=== PATIENT | male | born 1950 | race Caucasian/White ===

== ENCOUNTER → 2016-12-28 | Outpatient (CLI) | payer MEDICARE ==
[~2016-12-28] MED LIST: AMIT50TA PO; ATOR40TA78 PO; CARB200T3 PO; ESOM40CA PO; GABA600T2 PO; LEVO25TA4 PO; MORPHINE PO; OXYC-302 PO; OXYC15TA PO; OXYC15TA60 PO; TAMS-11 PO
== END | disposition home or self-care (01) ==
LOC: CFH 09:18
PROVIDERS: ATTEND Neurological Surgery
DX: M48.06 Spinal stenosis, lumbar region (principal); M51.36 Other intervertebral disc degeneration, lumbar region
CPT/HCPCS: 72100

== ENCOUNTER → 2017-03-24 | Outpatient (CLI) | payer MEDICARE | END | disposition home or self-care (01) | LOC: CFH 09:46 | PROVIDERS: ATTEND Neurological Surgery | DX: M51.36 Other intervertebral disc degeneration, lumbar region (principal); M43.16 Spondylolisthesis, lumbar region; M48.06 Spinal stenosis, lumbar region; M47.896 Other spondylosis, lumbar region; Z98.890 Other specified postprocedural states | CPT/HCPCS: 72100 ==

== ENCOUNTER → 2017-09-25 | Outpatient (CLI) | payer MEDICARE | END | disposition home or self-care (01) | LOC: CFH 09:32 | PROVIDERS: ATTEND Neurological Surgery | DX: M48.061 Spinal stenosis, lumbar region without neurogenic claudication (principal); Z98.890 Other specified postprocedural states | CPT/HCPCS: 72100 ==

== ENCOUNTER 2017-11-23 08:14 | Day surgery (SDC) | payer MEDICARE ==
[~2017-11-23] VITALS: Ht 175.3 cm; Wt 84.1 kg
[2017-11-23] MEDS ORDERED: SUGAMMADEX 200 MG/2 ML IVPush ONE (08:43)
[2017-11-23] MEDS ORDERED: LACTATED RINGERS 1,000 ML IV SCH (08:49)
[2017-11-23] MEDS ORDERED: ALBUTEROL/IPRATROPIUM 2.5MG/0.5MG, 3 ML ONE (10:27)
[2017-11-23] MEDS ORDERED: CEFAZOLIN 1,000 MG ONE (10:27)
[2017-11-23] MEDS ORDERED: ONDANSETRON 2MG/ML, 2ML ONE (10:27)
[2017-11-23] MEDS ORDERED: PROPOFOL 10 MG/ML, 20ML ONE (10:27)
[2017-11-23] MEDS ORDERED: SUCCINYLCHOLINE 20 MG/ML, 10ML ONE (10:27)
[2017-11-23] MEDS ORDERED: GLYCOPYRROLATE 0.2MG/1ML, 5ML ONE (10:27)
[2017-11-23] MEDS ORDERED: DEXAMETHASONE 4 MG/ML, 1ML ONE (10:27)
[2017-11-23] MEDS ORDERED: NEOSTIGMINE 1 MG/ML, 10ML ONE (10:27)
[2017-11-23] MEDS ORDERED: FENTANYL PF 100 MCG/2ML ONE (10:28)
[2017-11-23] MEDS ORDERED: LIDOCAINE-MPF 2% ,5ML ONE (10:35)
[2017-11-23] MEDS ORDERED: BUPIVACAINE/PF 0.5% INFIL ONE (10:59)
[2017-11-23] MEDS ORDERED: EPINEPHRINE 1 MG/ML, 1ML INFIL ONE (11:00)
[2017-11-23] MEDS ORDERED: OXYcodone 5 MG/5 ML ORAL.SOL UDC PO PRN (11:00)
[2017-11-23] MEDS ORDERED: MEPERIDINE/PF 25MG/0.5ML IVPush PRN (11:00)
[2017-11-23] MEDS ORDERED: FENTANYL PF 100 MCG/2ML IV PRN (11:00)
[2017-11-23] MEDS ORDERED: KETOROLAC 30 MG/1 ML IV PRN ×2 (11:00)
[2017-11-23] MEDS ORDERED: HYDROmorphone 1 MG/ML, 1ML IV PRN (11:00)
[2017-11-23] MEDS ORDERED: KETOROLAC 30 MG/1 ML IM PRN (11:00)
[2017-11-23] MEDS ORDERED: HYDROcodone/APAP 7.5-325MG/15ML UDC PO PRN (11:00)
[2017-11-23] MEDS ORDERED: ACETAMINOPHEN 325 MG TABLET PO PRN (11:00)
== END 2017-11-23 14:10 ==
LOC: OUT 08:14
PROVIDERS: ATTEND Surgery
DX: K42.0 Umbilical hernia with obstruction, without gangrene (principal); J44.9 Chronic obstructive pulmonary disease, unspecified; I10 Essential (primary) hypertension; E78.5 Hyperlipidemia, unspecified; F17.210 Nicotine dependence, cigarettes, uncomplicated; Z88.5 Allergy status to narcotic agent; Z98.890 Other specified postprocedural states
CPT/HCPCS: 49587; 94640; C1781; J0171; J0330; J0690; J1100; J2405; J2704; J2710; J3010; J3490; J7120